=== PATIENT | female | born 1955 | race Caucasian/White ===

== ENCOUNTER → 2024-04-10 09:26 | Outpatient (REF) | payer MEDICARE, OTHER, SELFPAY | LOC: HWRAD 09:26 | PROVIDERS: ATTENDING PHYSICIAN Internal Medicine | DX: M27.40 Unspecified cyst of jaw (principal) | CPT/HCPCS: 76536 ==

== ENCOUNTER → 2024-05-15 11:58 | Outpatient (REF) | payer MEDICARE, OTHER, SELFPAY | LOC: RAD 11:58 | PROVIDERS: ATTENDING PHYSICIAN Otolaryngology; FAMILY PHYSICIAN Internal Medicine | DX: K11.8 Other diseases of salivary glands (principal) | CPT/HCPCS: 70491; Q9967 ==